=== PATIENT | female | born 1960 | race Two or more races ===

== ENCOUNTER 2019-04-26 16:31 | Emergency (ER) | payer OTHER ==
[~2019-04-26] VITALS: Ht 160 cm; Wt 59.0 kg
[2019-04-26] MEDS ORDERED: IV NORMAL SALINE 1000 ML BAG IV ONE (16:45)
[2019-04-26 16:55] LABS: BASOPHILS % (AUTO) 0.3 % (0.0-2.0); EOSINOPHILS # (AUTO) 0.1 K/uL (0.0-0.7); EOSINOPHILS % (AUTO) 1.6 % (0.0-7.0); HEMATOCRIT 41.6 % (31.2-41.9); LYMPHOCYTES # (AUTO) 1.9 K/uL (20.0-40.0); LYMPHOCYTES % (AUTO) 27.5 % (20.5-51.5); MEAN CORPUSCULAR HEMOGLOBIN 28.9 uug (24.7-32.8); MEAN CORPUSCULAR HGB CONC 34 g/dL (32.3-35.6); MEAN CORPUSCULAR VOLUME 85.6 fL (75.5-95.3); MONOCYTES # (AUTO) 0.6 K/uL (2.0-10.0); NEUTROPHILS # (AUTO) 4.3 K/uL (1.8-8.9); NEUTROPHILS % (AUTO) 61.6 % (38.5-71.5); PLATELET COUNT (AUTO) 197 K/uL (179-408); RED BLOOD CELL COUNT(AUTO) 4.87 MIL/uL (3.63-4.92); WHITE BLOOD COUNT (AUTO) 7.1 K/uL (3.8-11.8)
[2019-04-26 17:03] LABS: CREATININE 0.6 mg/dL (0.6-1.3); POTASSIUM 3.6 mmol/L (3.5-5.1)
[2019-04-26 17:08] LABS: BILIRUBIN,DIRECT 0.1 mg/dL (0.0-0.2); BILIRUBIN,TOTAL 0.5 mg/dL (0.2-1.0); TOTAL PROTEIN, SERUM 7.4 g/dL (6.4-8.2)
[2019-04-26] MEDS ORDERED: IV NORMAL SALINE 250 ML IV ONE (17:14)
[2019-04-26] MEDS ORDERED: IOHEXOL 300MG/ML 100 ML INFUS..BTL ONE (17:14)
[2019-04-26] MEDS ORDERED: SWABABLE VALVE TRANSFER SET EA MC ONE (17:14)
--- NOTE | 2019-04-26 18:20 | NUR ---
Patient discharged to home in stable conditon. Written and verbal after care instructions given. Patient verbalizes understanding of instructions.PT WAKS I NSTEADY GAIT. PT REFUSES ANY PAIN MED AT THIS TIME. PT ACCOMPANIED BY
[2019-04-26 18:26] VITALS: BP 128/78
== END 2019-04-26 18:27 | disposition home or self-care (01) ==
LOC: ER 16:31
DX: L03.311 Cellulitis of abdominal wall (principal); K41.90 Unilateral femoral hernia, without obstruction or gangrene, not specified as recurrent
CPT/HCPCS: 36415; 74177; 80048; 80076; 83690; 85025; 99284; Q9967; A4663; J7030; J7050